=== PATIENT | male | born 1990 | race Caucasian/White ===

== ENCOUNTER → 2020-04-04 08:59 | Outpatient (CLI) | payer SELFPAY ==
--- NOTE | 2020-04-04 09:06 | US_ITS ---
STUDY: ABDOMINAL ULTRASOUND - RIGHT UPPER QUADRANT REASON FOR VISIT: Male, 29 years old FATTY LIVER TECHNIQUE: Ultrasound evaluation of the right upper quadrant was performed with real-time and static mcdonald-scale imaging. TECHNICAL QUALITY: Adequate. COMPARISON: Comparison is made with prior ultrasound dated 10/24/2009. FINDINGS: Liver: The liver measures 15.1 cm. There is increased echogenicity consistent with fatty infiltration. The bile ducts are within normal limits. There is hepatic color flow. The direction of portal flow is hepatopetal. There is no demonstrated mass lesion. Gallbladder: Normal distended gallbladder. The gallbladder wall measures 2.2 mm. There is a negative sonographic Bernard''s sign. There is no pericholecystic fluid. There are no gallstones. Common Bile Duct (C.B.D.): The common bile duct measures 1.4 mm. Pancreas: There is nonvisualization of the pancreas due to overlying bowel gas. Right Kidney: Normal size of the right kidney. The right kidney measures 12.4 cm x 6.1 cm x 7.3 cm. Normal renal cortex. The right cortex measures 2.2 cm. There is no demonstrated renal mass or cyst. There is no right hydronephrosis. US/Abdomen Limited IMPRESSION: Fatty infiltration of the liver. Electronically Signed: Berto Varner MD at 11:14 EST , Service support ,
== END ==
PROVIDERS: PCP Internal Medicine; Visit Provider Internal Medicine
DX: K76.0 Fatty (change of) liver, not elsewhere classified (principal)
CPT/HCPCS: 76705

== ENCOUNTER 2022-05-31 12:30 | Outpatient (RCR) | payer BC, SELFPAY ==
--- NOTE | 2022-05-15 09:52 | HP.PTEVAL_ITS ---
Patient's Visit Information TORY HUMPHRIES is a 31 year old M referred to Physical Therapy by Dr. Sheba Sena DO with a diagnosis of Lumbar Radiculopathy. Date of Evaluation: 05/15/22 Physical Therapist: Namita Celaya DPT - Visit Plan Frequency: 2x /Week Duration: 4 Weeks Plan: Neutral Spine- core strength/stabilization- decrease radicular s/s. HEP Given IE: Postural correction in sitting and standing - Subjective He golfed way more than normal last year and it just got worse and worse and it Nov it got really bad then it got better and then it got worse- a couple of weeks ago it got bad again. Nothing he can think of that flares it up. When he flares up he has pain in his buttock on the left side and down to both sides of the achilles- Knife in the buttock and ankle. Nothing really in the middle. 10 years ago he fell in his driveway and it did the same thing and Dr. Sena gave him pain meds and it went away. She put him on a dose pack and he does not have any more radiating pain to the ankle. No N/T in the toes. Did have back pain but that went away after he saw the chiropractor- 3x. He saw the chiropractor 2 week ago- he did not go this week- due to being on the medication. Chirag did an x-ray but he has not had any MRI. Chiro has been doing manipulation. Work: sitting for the day. He reports that he feels better sitting. Worst: 5/10 Agg: sneezing, sitting and getting up Eases: medication. Best: 0/10 but not normally. If he can find the right way to sit. Sleep: disturbed- normally a back or side sleeper- but he is normally a stomach sleeper. He tries to be active- no exercise routine he follows. Golf league does start soon. No loss of change in bowel or bladder. 45 min 2x a week in the car- he does find it hurting in the car. PMHx: HTN Meds: lisinopril and another medication but ca n't remember the name - Objective Posture: FH, RS- can correct but does not maintain. Gait: no deviation noted- good arm swing and trunk rotation. SLS:30 sec without LOB. HR/TR: able with UE A. Sensation: WFL to gross touch bilateral LE. Reflex: WFL. ROM: Lumbar: Flexion: hands to thighs with pain- all other motions WFL without pain, Hip/Knee/Ankle: WFL. Strength: Core: poor, Hip: 4+/5, Knee: 5/5. Ankle: 5/5. Flex: HS: moderate, Gastroc: moderate. Palpation: not tender to touch. Special Test: Dural Signs: Left: positive, Prone: increases pain, Flexion: increases pain- supine with legs elevated 90/90 decreases pain - Special Tests L/S Slump test left side: Positive L/S Slump test right side: Negative L/S Left Straight Leg Raise: Positive L/S Right Straight Leg Raise: Negative - Balance/Special Test Scores Oswestry Low Back Score: 18 - Goals Goal 1:: Patient will be I with HEP and progression Goal Time Frame: 4-6 Weeks Goal 2:: Patient will report no radicular s/s Goal Time Frame: 4-6 Weeks Goal 3:: Patient will maintain proper posture t/o tx session to demo increased core s/s Goal Time Frame: 4-6 Weeks Goal 4:: Patient will report 80% improvement Goal Time Frame: 4-6 Weeks - Rehabilitation Potential Physical Therapy Diagnosis: Patient presents with hypomobility- he has decreased LE and core strength/stabilization, flex and muscular endurance leading to poor posture and radicular s/s. Rehabilitation Potential: Good - Anticipated Interventions Patient/Client Instruction: Educate patient on: Benefits of Fitness Program Therapeutic Exercise to Include: Strength training, Endurance training, Balance training, Coordination, Agility training, Body mechanics, Postural training, Flexibilty training, Gait and locomotor training, Neuromotor development, Passive ROM, Active ROM, Dynamic Lumbar Stabilization, Scapular Strength/Stabilization For the Purpose of:: To improve muscle performance and motor function TENS: Yes Cryotherapy (ice pack, ice massage): Yes Thermo therapy (hot pack): Yes Ultrasound (thermal/non thermal): Yes Thank you for the opportunity to evaluate your patient. For Medicare and Medicare HMO plans, please review the plan of care and approve it. It will need to be FAXED BACK to us at [phone] for Medicare purposes. For Medicare only, by signing this I certify the plan of care. Please let me know if there are questions or concerns regarding this plan of care. Physician Signature: Date:
--- NOTE | 2022-09-09 13:14 | HP.PT.NRP ---
Patient Information Patient Information: TORY HUMPHRIES was seen in my office for initial evaluation on 05/15/22. The following Plan of Care was established for this patient: POC Established Initial Frequency: 2x /Week Initial Duration: 4 Weeks Anticipated Interventions Patient/Client Instruction: Educate patient on: Benefits of Fitness Program Therapeutic Exercise to Include: Strength training, Endurance training, Balance training, Coordination, Agility training, Body mechanics, Postural training, Flexibilty training, Gait and locomotor training, Neuromotor development, Passive ROM, Active ROM, Dynamic Lumbar Stabilization and Scapular Strength/Stabilization For the Purpose of:: To improve muscle performance and motor function TENS: Yes Cryotherapy (ice pack, ice massage): Yes Thermo therapy (hot pack): Yes Ultrasound (thermal/non thermal): Yes Last Seen Last Seen: This patient was last seen in our office . Pertinent comments regarding their Physical therapy will appear below: Patient has not attended PT in over 8 weeks- appropriate to be d/c and follow up with MD DOMÍNGUEZ. At this point I will be discontinuing this patient from physical therapy. I would be happy to see this patient again in the future if found appropriate by the physician. Thank you! Namita Celaya, GHISLAINET Balance/Gait/Functional tests Balance/Special Test Scores Oswestry Low Back Score: 18
== END 2022-05-31 19:00 | disposition home or self-care (01) ==
LOC: PT 12:30
PROVIDERS: PCP Internal Medicine; Referring Provider Internal Medicine; Visit Provider Internal Medicine
DX: M54.16 Radiculopathy, lumbar region (principal)
CPT/HCPCS: 97110; 97162; 97530